=== PATIENT | female | born 1990 | race American Indian/Alaskan Native ===

== ENCOUNTER 2017-06-11 14:09 | Emergency (ER) | payer OTHER ==
[2017-06-11 14:19] VITALS: BMI 35.7
--- NOTE | 2017-06-11 15:09 | ED PDOC ---
Arrival/HPI - General Chief Complaint: Chest Pain Time Seen by Provider: 06/11/17 14:23 Historian: Patient - History of Present Illness Narrative History of Present Illness (Text): 06/11/17 15:05 This 26 yo female presents to this ED c/o cough, sore throat since yesterday. Patient stated she developed upper back pain when she cough since this morning. Patient denies hemoptysis, leg swelling, calf pain, blood disorder, skin rash , wheezing, recent travel, sick contact, tobacco use, dizziness, or abnormal gait. PERC negative for PE Time/Duration: Other (see hpi) Context: Home Past Medical History - Provider Review Nursing Documentation Reviewed: Yes - Infectious Disease Hx of Infectious Diseases: None - Tetanus Immunization Tetanus Immunization: Unknown - Cardiac Hx Cardiac Disorders: No - Pulmonary Hx Asthma: Yes - Neurological Hx Migraine: Yes - HEENT Hx HEENT Disorder: No - Renal Hx Renal Disorder: No - Endocrine/Metabolic Hx Endocrine Disorders: No - Hematological/Oncological Hx Anemia: Yes - Integumentary Hx Dermatological Disorder: No - Musculoskeletal/Rheumatological Hx Musculoskeletal Disorders: No - Gastrointestinal Hx Gastrointestinal Disorders: No - Genitourinary/Gynecological Hx Genitourinary Disorders: No - Psychiatric Hx Anxiety: No Hx Bipolar Disorder: No Hx Depression: No Hx Post Traumatic Stress Disorder: No Hx Schizophrenia: No Hx Substance Use: No - Surgical History Hx Section: Yes Other/Comment: ovarian cyst removal - Anesthesia Hx Anesthesia: No Hx Anesthesia Reactions: No Hx Malignant Hyperthermia: No - Suicidal Assessment Feels Threatened In Home Enviroment: No Family/Social History - Physician Review Nursing Documentation Reviewed: Yes Family/Social History: Other (noncontributory) Smoking Status: Never Smoked Hx Alcohol Use: Yes Frequency of alcohol use: Socially Hx Substance Use: No Hx Substance Use Treatment: No Allergies/Home Meds Allergies/Adverse Reactions: Allergies No Known Allergies Allergy (Verified 06/11/17 14:19) Review of Systems - Review of Systems Constitutional: Normal. absent: Fatigue, Weight Change, Fevers Eyes: Normal ENT: Normal Respiratory: Cough. absent: Sputum, Wheezing Cardiovascular: Chest Pain. absent: Palpitations, Edema, Calf Pain, GOMEZ, Orthopnea, Syncope Gastrointestinal: Normal. absent: Abdominal Pain, Vomiting Genitourinary Female: Normal. absent: Dysuria, Frequency, Hematuria Musculoskeletal: Normal Skin: Normal. absent: Rash Neurological: Normal. absent: Headache, Dizziness, Focal Weakness, Gait Changes , Speech Changes, Facial Droop, Disequilibrium, Seizure Endocrine: Normal Hemo/Lymphatic: Normal Psychiatric: Normal Physical Exam Vital Signs Pulse Resp Pulse Ox 06/11/17 14:16 98 H 18 99 Temperature: Afebrile Blood Pressure: Normal Pulse: Regular Respiratory Rate: Normal Appearance: Positive for: Well-Appearing, Non-Toxic, Comfortable Pain Distress: None Mental Status: Positive for: Alert and Oriented X 3 - Systems Exam Head: Present: Atraumatic, Normocephalic Pupils: Present: PERRL Extroacular Muscles: Present: EOMI Conjunctiva: Present: Normal Ears: Present: Normal Mouth: Present: Moist Mucous Membranes Pharnyx: Present: Normal. No: ERYTHEMA, EXUDATE, TONSILS ENLARGED, Peritonsilar Swelling, Uvular Deviation, Muffled/Hoarse Voice, Strider, Soft Palate/Uvular Edema Nose (External): Present: Atraumatic Nose (Internal): Present: Normal Inspection Neck: Present: Normal Range of Motion, Trachea Midline. No: Meningeal Signs, MIDLINE TENDERNESS, Paraspinal Tenderness Respiratory/Chest: Present: Clear to Auscultation, Good Air Exchange. No: Respiratory Distress, Accessory Muscle Use, Wheezes, Decreased Breath Sounds, Rales, Retracting, Rhonchi, Tachypneic Cardiovascular: Present: Regular Rate and Rhythm, Normal S1, S2. No: Murmurs Abdomen: No: Tenderness Back: Present: Normal Inspection. No: CVA Tenderness Upper Extremity: Present: Normal Inspection, Normal ROM Lower Extremity: Present: Normal Inspection, Normal ROM Neurological: Present: GCS=15, CN II-XII Intact, Speech Normal, Motor Func Grossly Intact, Normal Sensory Function, Normal Cerebellar Funct, Gait Normal Skin: Present: Warm, Dry, Normal Color. No: Rashes Psychiatric: Present: Alert, Oriented x 3, Normal Insight, Normal Concentration Medical Decision Making ED Course and Treatment: 06/11/17 16:32 Patient came c/o URI symptoms, and upper back pain. Physical exam was unremarkable. CXR was negative. PERC was negative for PE. Patient was treated with cough medication. Patient was recommended to f/u pmd in 1-2 days. Patient understood recommendation. Re-evaluation Time: 16:34 Reassessment Condition: Re-examined, Improved - RAD Interpretation Narrative RAD Interpretations (Text): 06/11/17 16:32 Patient Name / ID : ARTURO LYONS / [id number] Exam Date : 06/11/2017 16:14:59 ( Approved ) Study Comment : Sex / Age : F / 26Y Creator : Gian Hicks MD Dictator : Gian Hicks MD Land Commissioner : Web Architect : Gian Hicks MD Approver2 : Report Date : 06/11/2017 16:26:05 My Comment : HISTORY: cough COMPARISON: No prior. TECHNIQUE: Chest PA and lateral FINDINGS: LUNGS: No active pulmonary disease. PLEURA: No significant pleural effusion identified. No pneumothorax apparent. CARDIOVASCULAR: Normal. OSSEOUS STRUCTURES: No significant abnormalities. VISUALIZED UPPER ABDOMEN: Normal. OTHER FINDINGS: None. IMPRESSION: No active disease. Radiology Orders: 06/11/17 15:02 CHEST TWO VIEWS (PA/LAT) [RAD] Stat - Medication Orders Current Medication Orders: Promethazine HCl/Codeine (Phenergan/Codeine Oral Syrup) 5 ml PO STAT STA Stop: 06/11/17 16:32 Disposition/Present on Arrival - Present on Arrival Any Indicators Present on Arrival: No History of DVT/PE: No History of Uncontrolled Diabetes: No Urinary Catheter: No History of Decub. Ulcer: No History Surgical Site Infection Following: None - Disposition Have Diagnosis and Disposition been Completed?: Yes Diagnosis: Upper respiratory infection, Upper back pain Disposition: HOME/ ROUTINE Disposition Time: 16:35 Patient Plan: Discharge Patient Problems: Current Active Problems Problem Status Onset Upper back pain Acute Upper respiratory infection Acute Condition: IMPROVED Discharge Instructions (ExitCare): Upper Respiratory Infection (ED) Additional Instructions: Call private doctor for follow up visit in 1-2 days. Take medication as instructed. Return to emergency if symptoms worsen. Prescriptions: Promethazine/Codeine [Codeine/Promethazine 10 MG/5 Ml-6.25 MG/5 Ml] 5 ml PO Q4H PRN #120 ml PRN Reason: Cough Referrals: Jones Barron MD [Primary Care Provider] - Follow up with primary Forms: [employer] (Sing[place]an), WORK NOTE
--- NOTE | 2017-06-11 16:27 | RAD ---
HISTORY: cough COMPARISON: No prior. TECHNIQUE: Chest PA and lateral FINDINGS: LUNGS: No active pulmonary disease. PLEURA: No significant pleural effusion identified. No pneumothorax apparent. CARDIOVASCULAR: Normal. OSSEOUS STRUCTURES: No significant abnormalities. VISUALIZED UPPER ABDOMEN: Normal. OTHER FINDINGS: None. IMPRESSION: No active disease.
[2017-06-11] MEDS ORDERED: Promethazine/Cod 6.25mg-10mg/5ml Syr UD PO STA (16:31)
[2017-06-11 16:51] VITALS: BP 154/86; PULSE 82; RESP 16; TEMP 98; O2SAT 98
--- NOTE | 2017-06-12 16:59 | CARD ---
APPROVED REPORT EKG Measurement Heart [id number] <Conclusion> Normal sinus rhythm Normal ECG
== END 2017-06-11 16:50 | disposition home or self-care (01) ==
LOC: ED 14:09
DX: J06.9 Acute upper respiratory infection, unspecified (principal); M54.6 Pain in thoracic spine

== ENCOUNTER 2017-11-22 11:06 | Emergency (ER) | payer OTHER ==
[2017-11-22 11:09] VITALS: BMI 36.4
[2017-11-22 11:17] VITALS: TEMP 98; O2SAT 99
[2017-11-22 12:13] LABS: BASO # 0.04 K/mm3 (0.0-2.0); BASO % 0.5 % (0.0-3.0); EOS % 0.2 % (1.5-5.0); GRAN # 7.08 (1.4-6.5); GRAN % 84.3 % (50.0-68.0); HEMOGLOBIN 12.3 g/dL (12.0-16.0); LYMPH % 11.5 % (22.0-35.0); MEAN CELL VOLUME 80.6 fl (80.0-105.0); MEAN CORPUSCULAR HEMOGLOBIN 27.1 pg (25.0-35.0); MEAN CORPUSCULAR HGB CONC 33.6 g/dl (31.0-37.0); MEAN PLATELET VOLUME 9.8 fl (7.0-11.0); MONO # 0.3 (0.1-0.6); MONO % 3.5 % (1.0-6.0); RBC 4.54 10^6/uL (3.5-6.1); RED CELL DISTRIBUTION WIDTH 13.6 % (11.5-14.5); WHITE BLOOD COUNT 8.4 10^3/ul (4.5-11.0)
[2017-11-22 12:14] LABS: URINE BILIRUBIN NEGATIVE (NEGATIVE); URINE BLOOD NEGATIVE (NEGATIVE); URINE GLUCOSE (UA) NEGATIVE (NEGATIVE); URINE LEUKOCYTE ESTERASE NEGATIVE Leu/uL (NEGATIVE); URINE PROTEIN TRACE mg/dL (<30 mg/dL)
[2017-11-22 12:18] LABS: URINE APPEARANCE CLEAR (CLEAR); URINE COLOR YELLOW (YELLOW)
[2017-11-22 12:20] LABS: URINE BACTERIA MANY (NEG); URINE RBC 0 - 2 /hpf (0-2)
[2017-11-22 12:23] LABS: ALB/GLOB RATIO 1.3 (1.1-1.8); ALBUMIN 4.6 g/dL (3.0-4.8); ALT/SGPT 26 U/L (7-56); AST/SGOT 21 U/L (14-36); BLOOD UREA NITROGEN 9 mg/dL (7-21); CALCIUM 9.5 mg/dL (8.4-10.5); GFR AFRICAN-AMERICAN > 60; GFR NON-AFRICAN AMERICAN > 60
--- NOTE | 2017-11-22 12:23 | ED PDOC ---
Arrival/HPI - General Chief Complaint: Shortness Of Breath Time Seen by Provider: 11/22/17 11:07 Historian: Patient - History of Present Illness Narrative History of Present Illness (Text): 11/22/17 11:59 27yo female with no past medical history who present with complaint of SOB. States she suddenly became SOB enroute to her job. States she became nervous and came to emergency department . She states she has been having problems with her sister. she denies history of anxiety. Denies chest pain, cough, fever, LE edema, calf pain, recent travel/surgery, OCP, any other complaint. Past Medical History - Provider Review Nursing Documentation Reviewed: Yes - Infectious Disease Hx of Infectious Diseases: None - Tetanus Immunization Tetanus Immunization: Unknown - Cardiac Hx Cardiac Disorders: No - Pulmonary Hx Asthma: Yes - Neurological Hx Migraine: Yes - HEENT Hx HEENT Disorder: No - Renal Hx Renal Disorder: No - Endocrine/Metabolic Hx Endocrine Disorders: No - Hematological/Oncological Hx Anemia: Yes - Integumentary Hx Dermatological Disorder: No - Musculoskeletal/Rheumatological Hx Musculoskeletal Disorders: No - Gastrointestinal Hx Gastrointestinal Disorders: No - Genitourinary/Gynecological Hx Genitourinary Disorders: No - Psychiatric Hx Anxiety: No Hx Bipolar Disorder: No Hx Depression: No Hx Post Traumatic Stress Disorder: No Hx Schizophrenia: No Hx Substance Use: No - Surgical History Hx Section: Yes Other/Comment: ovarian cyst removal - Anesthesia Hx Anesthesia: No Hx Anesthesia Reactions: No Hx Malignant Hyperthermia: No - Suicidal Assessment Feels Threatened In Home Enviroment: No Family/Social History - Physician Review Nursing Documentation Reviewed: Yes Family/Social History: Unknown Family HX Smoking Status: Never Smoked Hx Alcohol Use: Yes Frequency of alcohol use: Socially Hx Substance Use: No Hx Substance Use Treatment: No Allergies/Home Meds Allergies/Adverse Reactions: Allergies No Known Allergies Allergy (Verified 11/22/17 11:17) Home Medications: Home Meds Medication Instructions Recorded Confirmed No Known Home Med 11/22/17 11/22/17 Review of Systems - Physician Review All systems were reviewed & negative as marked: Yes - Review of Systems Constitutional: Normal Eyes: Normal ENT: Normal Respiratory: SOB. absent: Cough, Sputum, Wheezing Cardiovascular: Normal Gastrointestinal: Normal Genitourinary Female: Normal Musculoskeletal: Normal Skin: Normal Neurological: Normal Endocrine: Normal Hemo/Lymphatic: Normal Psychiatric: Normal Physical Exam Vital Signs Reviewed: Yes Vital Signs Temp Pulse Resp BP Pulse Ox 11/22/17 13:25 78 18 124/76 99 11/22/17 13:06 18 99 11/22/17 11:09 98 F 103 H 20 127/81 99 Temperature: Afebrile Blood Pressure: Normal Pulse: Regular Respiratory Rate: Normal Appearance: Positive for: Well-Appearing, Non-Toxic, Comfortable Pain Distress: None Mental Status: Positive for: Alert and Oriented X 3 - Systems Exam Head: Present: Atraumatic, Normocephalic Pupils: Present: PERRL Extroacular Muscles: Present: EOMI Conjunctiva: Present: Normal Mouth: Present: Moist Mucous Membranes Neck: Present: Normal Range of Motion Respiratory/Chest: Present: Clear to Auscultation, Good Air Exchange. No: Respiratory Distress, Accessory Muscle Use, Wheezes, Decreased Breath Sounds, Rales, Retracting, Rhonchi Cardiovascular: Present: Regular Rate and Rhythm, Normal S1, S2. No: Murmurs Abdomen: No: Tenderness, Distention, Peritoneal Signs Back: Present: Normal Inspection Upper Extremity: Present: Normal Inspection. No: Cyanosis, Edema Lower Extremity: Present: Normal Inspection. No: Edema Neurological: Present: GCS=15, CN II-XII Intact, Speech Normal Skin: Present: Warm, Dry, Normal Color. No: Rashes Psychiatric: Present: Alert, Oriented x 3, Normal Insight, Normal Concentration Medical Decision Making ED Course and Treatment: 11/22/17 19:45 PT in emergency department for stated history. She was neurologically intact and in no distress. Her PE was benign. EKG NSR @ 94bpm Chest X-Ray NAD Lab was unremarkable. Pt's symptoms resolved while she was in emergency department . Pt might have anxiety. She was advised to follow up with her PMD/onion farmer. TRT emergency department for any new or worsening symptoms. - Lab Interpretations Lab Results: 11/22/17 11:34 11/22/17 11:34 Lab Results 11/22/17 11:34: Urine Color Yellow, Urine Appearance Clear, Urine pH 8.0, Ur Specific [place] 1.015, Urine Protein Trace H, Urine Glucose (UA) Negative, Urine Ketones Negative, Urine Blood Negative, Urine Nitrate Negative, Urine Bilirubin Negative, Urine Urobilinogen 1.0 H, Ur Leukocyte Esterase Negative, Urine RBC 0 - 2, Urine WBC 1 - 3, Ur Epithelial Cells 6 - 8, Urine Bacteria Many , Urine Other Uyeast 11/22/17 11:34: Sodium 141, Potassium 4.4, Chloride 101, Carbon Dioxide 26, Anion Gap 18, BUN 9, Creatinine 0.7, Est GFR ( Amer) > 60, Est GFR (Non- Af Amer) > 60, Random Glucose 103, Calcium 9.5, Magnesium 2.0, Total Bilirubin 0.4, AST 21, ALT 26, Alkaline Phosphatase 70, Lactate Dehydrogenase 663, Total Creatine Kinase 241 H, CK-MB (CK-2) 0.4, CK-MB (CK-2) % Cancelled, Troponin I < 0.01, Total Protein 8.2, Albumin 4.6, Globulin 3.6, Albumin/Globulin Ratio 1.3 11/22/17 11:34: PT 12.4, INR 1.08, APTT 29.1, D-Dimer, Quantitative < 200 11/22/17 11:34: WBC 8.4, RBC 4.54, Hgb 12.3, Hct 36.6, MCV 80.6, MCH 27.1, MCHC 33.6, RDW 13.6, Plt Count 359, MPV 9.8, Gran % 84.3 H, Lymph % (Auto) 11.5 L, Grainger % (Auto) 3.5, Eos % (Auto) 0.2 L, Baso % (Auto) 0.5, Gran # 7.08 H, Lymph # (Auto) 1.0 L, Grainger # (Auto) 0.3, Eos # (Auto) 0.0, Baso # (Auto) 0.04 - RAD Interpretation Radiology Orders: 11/22/17 11:16 CHEST TWO VIEWS (PA/LAT) [RAD] Stat Disposition/Present on Arrival - Present on Arrival Any Indicators Present on Arrival: No History of DVT/PE: No History of Uncontrolled Diabetes: No Urinary Catheter: No History of Decub. Ulcer: No History Surgical Site Infection Following: None - Disposition Have Diagnosis and Disposition been Completed?: Yes Diagnosis: SOB (shortness of breath), Anxiety Disposition: HOME/ ROUTINE Disposition Time: 12:50 Patient Plan: Discharge Condition: STABLE Discharge Instructions (ExitCare): Anxiety, Adult (DC), Shortness of Breath ( Dyspnea) (DC) Additional Instructions: Follow up with your doctor Return to emergency department for any new or worsening symptoms Referrals: [facility] [place] - Follow up with primary Forms: [employer] ([place])
[2017-11-22 12:30] LABS: D DIMER < 200 ng/mL (0-243); INR 1.08 (0.93-1.08); PARTIAL THROMBOPLASTIN TIME 29.1 Seconds (25.1-36.5); PROTHROMBIN TIME 12.4 SECONDS (9.4-12.5)
[2017-11-22 12:35] LABS: TROPONIN I < 0.01 ng/mL
[2017-11-22 12:43] LABS: CK-MB 0.4 ng/mL (0.0-3.6)
--- NOTE | 2017-11-22 12:57 | CARD ---
APPROVED REPORT EKG Measurement Heart [id number] <Conclusion> Normal sinus rhythm Normal ECG
[2017-11-22 13:25] VITALS: BP 124/76; PULSE 78; RESP 18
== END 2017-11-22 13:32 | disposition home or self-care (01) ==
LOC: ED 11:06
DX: F41.9 Anxiety disorder, unspecified (principal); R06.02 Shortness of breath

== ENCOUNTER 2018-09-03 21:44 | Emergency (ER) | payer BC ==
[2018-09-03 21:44] VITALS: BMI 36.4
[2018-09-03 22:18] VITALS: TEMP 97.9
--- NOTE | 2018-09-03 22:21 | ED PDOC ---
Arrival/HPI - General Chief Complaint: Chest Pain Time Seen by Provider: 09/03/18 21:50 Historian: Patient - History of Present Illness Narrative History of Present Illness (Text): 09/03/18 22:15 28 year old female, whose past medical history includes asthma, presents to the emergency department with chest discomfort. Patient states she was feeling chest tightness with associated dizziness. Patient also informs that she felt "a funny feeling" in her left arm. Patient also informs pain was radiating with a sharp pain to her back. Patient also informs she has been getting over a cold which she developed a few days ago, including a mild cough. Patient informs of nausea without vomiting. Patient denies any fevers, chills, headache, diaphoresis, abdominal pain, diarrhea, neck pain, or any other complaint. Time/Duration: Prior to Arrival Symptom Onset: Gradual Symptom Course: Improving Quality: Pressure Activities at Onset: Light Context: Walking Past Medical History - Provider Review Nursing Documentation Reviewed: Yes - Infectious Disease Hx of Infectious Diseases: None - Tetanus Immunization Tetanus Immunization: Unknown - Cardiac Hx Cardiac Disorders: No - Pulmonary Hx Asthma: Yes - Neurological Hx Migraine: Yes - HEENT Hx HEENT Disorder: No - Renal Hx Renal Disorder: No - Endocrine/Metabolic Hx Endocrine Disorders: No - Hematological/Oncological Hx Anemia: Yes - Integumentary Hx Dermatological Disorder: No - Musculoskeletal/Rheumatological Hx Musculoskeletal Disorders: No - Gastrointestinal Hx Gastrointestinal Disorders: No - Genitourinary/Gynecological Hx Genitourinary Disorders: No - Psychiatric Hx Anxiety: No Hx Bipolar Disorder: No Hx Depression: No Hx Post Traumatic Stress Disorder: No Hx Schizophrenia: No Hx Substance Use: No - Surgical History Hx Section: Yes Other/Comment: ovarian cyst removal - Anesthesia Hx Anesthesia: No Hx Anesthesia Reactions: No Hx Malignant Hyperthermia: No - Suicidal Assessment Feels Threatened In Home Enviroment: No Family/Social History - Physician Review Nursing Documentation Reviewed: Yes Family/Social History: No Known Family HX Smoking Status: Never Smoked Hx Alcohol Use: Yes Hx Substance Use: No Hx Substance Use Treatment: No Allergies/Home Meds Allergies/Adverse Reactions: Allergies No Known Allergies Allergy (Verified 11/22/17 11:17) Home Medications: Home Meds Medication Instructions Recorded Confirmed No Known Home Med 11/22/17 11/22/17 Review of Systems - Physician Review All systems were reviewed & negative as marked: Yes - Review of Systems Constitutional: absent: Fevers, Night Sweats Cardiovascular: Chest Pain Gastrointestinal: Nausea. absent: Abdominal Pain, Diarrhea, Vomiting Musculoskeletal: Back Pain. absent: Neck Pain Neurological: Dizziness. absent: Headache Endocrine: absent: Diaphoresis Physical Exam - Physical Exam Narrative Physical Exam (Text): 09/03/18 22:21 Gen: VS reviewed, alert, well developed, well nourished, nontoxic, mild distress. ENT: normal pharynx. Eye: EOMI, PERRL. Neck: no JVD, supple, no adenopathy. CV: regular rate, regular rhythm, no rubs, no murmur, no gallops, S1, S2, pulses equal and strong. Pulm: no distress, clear to auscultation, no wheeze, no rhonchi, breath sounds equal, no rales. Abd: soft, nontender, no guarding, no rebound, no rigidity, normal bowel sounds. Ext: no edema. Skin: good color, no rash, no cyanosis. Psych: responds appropriately to questions, normal affect. Neuro: oriented x 3, CN2-12 intact grossly, motor intact, sensation intact. Vital Signs Reviewed: Yes Vital Signs Temp Pulse Pulse Resp BP BP Pulse Ox 09/03/18 21:57 90 111/70 09/03/18 21:46 97.9 F 82 18 111/70 97 Temperature: Afebrile Blood Pressure: Normal Pulse: Regular Respiratory Rate: Normal Appearance: Positive for: Well-Appearing, Non-Toxic, Comfortable Pain Distress: None Mental Status: Positive for: Alert and Oriented X 3 Medical Decision Making ED Course and Treatment: 09/03/18 22:23 Impression: 28 year old female presents with chest pain. Plan: -- EKG -- CMP, Trop -- CBC, Ddimer, Platelets -- Chest X-ray -- Reassess and disposition Prior Visits: Notes and results from previous visits were reviewed. 09/04/18 02:28 28 f presents with nonspecific chest pain, no significant clinical suspicion for aortic dissection or PE. with serial trop and nondiagnostic ekg a acute event such as acs is very unlikely and patient is stable for dc. refer to cardiology. patient understands and agrees with plan and will make follow up. - RAD Interpretation Narrative RAD Interpretations (Text): 09/04/18 00:12 Chest X-ray reviewed by me, shows: No focal infiltrates, no pneumothorax, no wide mediastinum Radiology Orders: 09/03/18 22:14 CHEST PORTABLE [RAD] Stat Parking Enforcement Specialist: ED Physician - EKG Interpretation EKG Interpretation (Text): 09/03/18 23:36 Normal sinus rhythm @ 91bpm Normal EKG Interpreted by ED Physician: Yes Type: 12 lead EKG - Scribe Statement The provider has reviewed the documentation as recorded by the Scribe Jasper Manzano Provider Scribe Attestation: All medical record entries made by the Scribe were at my direction and personally dictated by me. I have reviewed the chart and agree that the record accurately reflects my personal performance of the history, physical exam, medical decision making, and the department course for this patient. I have also personally directed, reviewed, and agree with the discharge instructions and disposition. Disposition/Present on Arrival - Present on Arrival Any Indicators Present on Arrival: No History of DVT/PE: No History of Uncontrolled Diabetes: No Urinary Catheter: No History of Decub. Ulcer: No History Surgical Site Infection Following: None - Disposition Have Diagnosis and Disposition been Completed?: Yes Diagnosis: Chest pain Disposition: HOME/ ROUTINE Disposition Time: 02:29 Patient Plan: Discharge Condition: STABLE Discharge Instructions (ExitCare): Chest Pain (ED) Additional Instructions: return for any new or worsening symptoms. follow up with a family and consumer sciences professor. Referrals: PCP,NO [Primary Care Provider] - Follow up with primary Marcell Nicole MD [Staff Provider] - Follow up with primary Christie Moralez MD [Medical Doctor] - Follow up with primary Forms: [email or web address] ([place]ian), WORK NOTE
[2018-09-03 22:48] VITALS: RESP 16
[2018-09-03 22:51] LABS: BASO # 0.06 K/mm3 (0.0-2.0); BASO % 0.7 % (0.0-3.0); EOS # 0.2 (0.0-0.7); EOS % 2.7 % (1.5-5.0); HEMOGLOBIN 12.2 g/dL (12.0-16.0); LYMPH # 2.1 (1.2-3.4); LYMPH % 24.7 % (22.0-35.0); MEAN CELL VOLUME 82.9 fl (80.0-105.0); MEAN CORPUSCULAR HEMOGLOBIN 26.7 pg (25.0-35.0); MEAN CORPUSCULAR HGB CONC 32.2 g/dl (31.0-37.0); MEAN PLATELET VOLUME 9.9 fl (7.0-11.0); MONO # 0.5 (0.1-0.6); MONO % 5.3 % (1.0-6.0); RBC 4.57 10^6/uL (3.5-6.1); RED CELL DISTRIBUTION WIDTH 13.8 % (11.5-14.5); WHITE BLOOD COUNT 8.6 10^3/uL (4.5-11.0)
[2018-09-03 23:01] LABS: INR 1.16; PARTIAL THROMBOPLASTIN TIME 38.1 Seconds (26.9-38.3); PROTHROMBIN TIME 12.9 SECONDS (9.4-12.5)
[2018-09-03 23:05] LABS: ALB/GLOB RATIO 1.3 (1.1-1.8); ALBUMIN 4.1 g/dL (3.0-4.8); AST/SGOT 25 U/L (14-36); BLOOD UREA NITROGEN 6 mg/dL (7-21); CALCIUM 9.3 mg/dL (8.4-10.5); GFR NON-AFRICAN AMERICAN > 60
[2018-09-03 23:10] LABS: ALT/SGPT < 6 U/L (7-56)
[2018-09-03 23:16] LABS: TROPONIN I < 0.01 ng/mL
[2018-09-03 23:25] LABS: D DIMER < 200 ng/mlDDU (0-243)
[2018-09-04 00:02] VITALS: PULSE 78
[2018-09-04 02:15] VITALS: BP 116/64; O2SAT 96
--- NOTE | 2018-09-04 08:32 | RAD ---
Date of service: 09/03/2018 HISTORY: chest pain COMPARISON: 11/22/2017 TECHNIQUE: 1 view obtained. FINDINGS: LUNGS: No active pulmonary disease. PLEURA: No significant pleural effusion identified, no pneumothorax apparent. CARDIOVASCULAR: No aortic atherosclerotic calcification present. Normal cardiac size. No pulmonary vascular congestion. OSSEOUS STRUCTURES: No significant abnormalities. VISUALIZED UPPER ABDOMEN: Normal. OTHER FINDINGS: None. IMPRESSION: No active disease.
--- NOTE | 2018-09-04 10:40 | CARD ---
APPROVED REPORT Date of service: 09/03/2018 EKG Measurement Heart [id number] <Conclusion> Normal sinus rhythm Nonspecific T wave abnormality Abnormal ECG
== END 2018-09-04 03:08 | disposition home or self-care (01) ==
LOC: ED 21:44
DX: R07.89 Other chest pain (principal)

== ENCOUNTER 2018-09-06 09:52 | Outpatient (CLI) | payer BC | END 2018-09-06 09:53 | disposition home or self-care (01) | LOC: LAB 09:52 ==

== ENCOUNTER 2018-09-29 14:12 | Observation (INO) | payer BC ==
--- NOTE | 2018-09-29 14:43 | ED PDOC ---
Arrival/HPI - General Chief Complaint: Chest Pain Historian: Patient - History of Present Illness Narrative History of Present Illness (Text): 09/29/18 14:40 A 28 year old female, whose past medical history includes asthma, presents to the emergency room complaining of mid-sternal chest pain since 1:30 pm earlier today. Patient states she was just dropping off her daughter when she suddenly felt her symptoms and notes pain has been constant since then. Patient notes her pain radiates to her back and exacerbates when she breathes deeply. Patient reports taking her asthma pump twice for the pain to no relief. Patient states her current is unlike any pain she has experienced before. Patient notes her current medication only includes asthma medication and vitamin D. Patient states she had symptoms with her lower right leg that resolved yesterday. Patient notes she has a family history of cardiac issues. Patient also notes she is not a smoker, has not recently traveled, and is not currently taking any control medication. Patient denies any nausea, vomiting, cough, sore throat, abdominal pain, numbness, tingling, or any other complaints. No PMD Time/Duration: 1-3 hours Symptom Onset: Sudden Symptom Course: Unchanged Activities at Onset: Light Context: Work Past Medical History - Provider Review Nursing Documentation Reviewed: Yes - Infectious Disease Hx of Infectious Diseases: None - Tetanus Immunization Tetanus Immunization: Unknown - Reproductive Menopause: No - Cardiac Hx Cardiac Disorders: No - Pulmonary Hx Asthma: Yes - Neurological Hx Migraine: Yes - HEENT Hx HEENT Disorder: No - Renal Hx Renal Disorder: No - Endocrine/Metabolic Hx Endocrine Disorders: No - Hematological/Oncological Hx Anemia: Yes - Integumentary Hx Dermatological Disorder: No - Musculoskeletal/Rheumatological Hx Musculoskeletal Disorders: No - Gastrointestinal Hx Gastrointestinal Disorders: No - Genitourinary/Gynecological Hx Genitourinary Disorders: No - Psychiatric Hx Anxiety: No Hx Bipolar Disorder: No Hx Depression: No Hx Post Traumatic Stress Disorder: No Hx Schizophrenia: No Hx Substance Use: No - Surgical History Hx Section: Yes Other/Comment: ovarian cyst removal - Anesthesia Hx Anesthesia: No Hx Anesthesia Reactions: No Hx Malignant Hyperthermia: No - Suicidal Assessment Feels Threatened In Home Enviroment: No Family/Social History - Physician Review Nursing Documentation Reviewed: Yes Family/Social History: Unknown Family HX Smoking Status: Never Smoked Hx Alcohol Use: Yes Hx Substance Use: No Hx Substance Use Treatment: No Allergies/Home Meds Allergies/Adverse Reactions: Allergies No Known Allergies Allergy (Verified 11/22/17 11:17) Home Medications: Home Meds Medication Instructions Recorded Confirmed Albuterol Sulfate [Proair 09/29/18 Respiclick] Review of Systems - Review of Systems Constitutional: absent: Fatigue, Fevers Eyes: absent: Vision Changes ENT: absent: Sore Throat Respiratory: Other (pain upon breathing deeply). absent: Cough Cardiovascular: Chest Pain (mid chest pain radiating to back) Gastrointestinal: absent: Abdominal Pain, Nausea, Vomiting Genitourinary Female: absent: Dysuria Musculoskeletal: absent: Back Pain, Neck Pain Skin: absent: Rash Neurological: absent: Headache, Dizziness, Other (no numbness/tingling) Hemo/Lymphatic: absent: Easy Bleeding Physical Exam - Physical Exam Narrative Physical Exam (Text): 09/29/18 14:42 Head: Atraumatic. Normocephalic. Eyes: PERRL. EOMI. Conjunctivae are not pale. ENT: Mucous membranes are moist and intact. Oropharynx is clear and symmetric. Neck: Supple. Full ROM. No JVD. No lymphadenopathy. No thyromegaly. Cardiovascular: Tachycardic. No pathologic murmurs. Distal pulses are 2+ and symmetric. Pulmonary/Chest: No evidence of respiratory distress. Clear to auscultation bilaterally. No wheezing, rales or rhonchi. Chest wall is nontender. Abdominal: Soft and non-distended. There is no tenderness. No rebound, guarding, or rigidity. No organomegaly. Good bowel sounds. Back: No CVA tenderness. No palpable back tenderness. Extremities: No edema. No cyanosis. No clubbing. Full range of motion in all extremities. No calf tenderness. No muscle pain or edema noted. Skin: Skin is warm and dry. No petechiae. No purpura. Neurological: Alert, awake, and oriented. Motor and sensory exam intact. No meningeal signs. Psychiatric: Good eye contact. Mildly anxious. Vital Signs Reviewed: Yes Vital Signs Temp Pulse Resp BP Pulse Ox 09/29/18 14:18 97.7 F 102 H 18 112/70 97 09/29/18 14:12 97.7 F 108 H 18 112/70 100 Temperature: Afebrile Blood Pressure: Normal Pulse: Tachycardic Respiratory Rate: Normal Appearance: Positive for: Well-Appearing, Non-Toxic Pain Distress: Moderate Mental Status: Positive for: Alert and Oriented X 3 Medical Decision Making ED Course and Treatment: 09/29/18 14:43 Impression: 28 year old female presenting to the emergency room complaining of chest pain. Plan: -- EKG -- Cardiac ISO -- CMP -- CBC -- D Dimer -- COAGs -- Chest X-ray -- Urinalysis -- Reassess and disposition Prior Visits: Notes and results from previous visits were reviewed. Patient was last seen in the emergency department on 09/03/18 and evaluated for chest pain. Patient was then discharged when her symptoms resolved. Progress Notes: Patient on evaluation is tachycardic, but not hypoxic. No calf pain. Denies smoking, denies recent prolonged travel, denies hx of clots, denies oral contraceptives, denies prolonged immobilization. On exam, her pain is not palpable. No abdominal pain. Denies positional or exertional pain. With serial exams, heart rate improved to 90. Blood pressure stable. Ddimer is unremarkable. CPK is elevated. She denies statin medication. Denies sedentary lifestyle. Denies strenuous activity or exertion. IV fluids given. No focal muscle weakness noted. ASA ordered. She reports family hx of cardiac disease. Initial troponin unremarkable. Given history of chest pain, will admit to telemetry bed for cardiology consultation, serial exams, monitoring. Patient currently does not have PMD, case discussed with Dr. Gamaliel Morales, oncall physician accepts admission to his service. Will consult Dr. Giraldo cardiology. Labs and treatment plan reviewed with patient, who is agreeable to admission. 09/29/18 19:38 - RAD Interpretation Narrative RAD Interpretations (Text): 09/29/18 15:53 Procedure: Chest X-ray Dictator: Jasper Shields Impression: No active disease. Radiology Orders: 09/29/18 14:39 CHEST TWO VIEWS (PA/LAT) [RAD] Stat Tool Crib Lead: Radiologist - EKG Interpretation EKG Interpretation (Text): 09/29/18 19:43 EKG at 1426, sinus tachycardia rate of [address] elevations Interpreted by ED Physician: Yes Type: 12 lead EKG - Scribe Statement The provider has reviewed the documentation as recorded by the Ashleighibjessica Allen All medical record entries made by the Scribe were at my direction and personally dictated by me. I have reviewed the chart and agree that the record accurately reflects my personal performance of the history, physical exam, medical decision making, and the department course for this patient. I have also personally directed, reviewed, and agree with the discharge instructions and disposition. Disposition/Present on Arrival - Present on Arrival Any Indicators Present on Arrival: No History of DVT/PE: No History of Uncontrolled Diabetes: No Urinary Catheter: No History of Decub. Ulcer: No History Surgical Site Infection Following: None - Disposition Have Diagnosis and Disposition been Completed?: Yes Diagnosis: Chest pain, Elevated CPK Disposition: HOSPITALIZED Disposition Time: 18:30 Patient Plan: Admission, Observation, Telemetry Patient Problems: Current Active Problems Problem Status Onset Chest pain Acute Elevated CPK Acute Condition: FAIR
[2018-09-29 15:32] LABS: BASO # 0.06 K/mm3 (0.0-2.0); BASO % 0.8 % (0.0-3.0); EOS # 0.2 (0.0-0.7); EOS % 2.9 % (1.5-5.0); HEMOGLOBIN 12.9 g/dL (12.0-16.0); LYMPH # 2.3 (1.2-3.4); LYMPH % 30.1 % (22.0-35.0); MEAN CELL VOLUME 83.1 fl (80.0-105.0); MEAN CORPUSCULAR HEMOGLOBIN 26.9 pg (25.0-35.0); MEAN CORPUSCULAR HGB CONC 32.4 g/dl (31.0-37.0); MEAN PLATELET VOLUME 10.5 fl (7.0-11.0); MONO # 0.6 (0.1-0.6); MONO % 7.7 % (1.0-6.0); RBC 4.79 10^6/uL (3.5-6.1); RED CELL DISTRIBUTION WIDTH 13.8 % (11.5-14.5); URINE BILIRUBIN NEGATIVE (NEGATIVE); URINE BLOOD NEGATIVE (NEGATIVE); URINE GLUCOSE (UA) NEGATIVE (NEGATIVE); URINE LEUKOCYTE ESTERASE NEGATIVE Leu/uL (NEGATIVE); URINE PROTEIN 30 mg/dL (<30 mg/dL); WHITE BLOOD COUNT 7.5 10^3/uL (4.5-11.0)
[2018-09-29 15:33] LABS: URINE APPEARANCE CLEAR (CLEAR); URINE COLOR YELLOW (YELLOW)
[2018-09-29 15:36] LABS: URINE AMORPHOUS SEDIMENT TRACE /hpf; URINE RBC 0 - 2 /hpf (0-2)
--- NOTE | 2018-09-29 15:38 | RAD ---
Date of service: 09/29/2018 HISTORY: chest pain COMPARISON: 09/03/2018 TECHNIQUE: Chest PA and lateral views FINDINGS: LUNGS: No active pulmonary disease. PLEURA: No significant pleural effusion identified. No pneumothorax apparent. CARDIOVASCULAR: No aortic atherosclerotic calcification present. Normal cardiac size. No pulmonary vascular congestion. OSSEOUS STRUCTURES: No significant abnormalities. VISUALIZED UPPER ABDOMEN: Normal. OTHER FINDINGS: None. IMPRESSION: No active disease.
[2018-09-29 15:40] LABS: INR 1.19; PARTIAL THROMBOPLASTIN TIME 38.1 Seconds (26.9-38.3); PROTHROMBIN TIME 13.2 SECONDS (9.4-12.5)
[2018-09-29 15:42] LABS: D DIMER < 200 ng/mlDDU (0-243)
[2018-09-29 16:03] LABS: ALB/GLOB RATIO 1.3 (1.1-1.8); ALBUMIN 4.5 g/dL (3.0-4.8); ALT/SGPT 12 U/L (7-56); AST/SGOT 37 U/L (14-36); BLOOD UREA NITROGEN 9 mg/dL (7-21); CALCIUM 9.3 mg/dL (8.4-10.5); GFR NON-AFRICAN AMERICAN > 60
[2018-09-29 16:06] LABS: TROPONIN I < 0.01 ng/mL
[2018-09-29] MEDS ORDERED: Sodium Chloride 0.9% 500 ML IV STA (16:12)
[2018-09-29 16:17] LABS: CK-MB 0.4 ng/mL (0.0-3.6)
--- NOTE | 2018-09-29 20:06 | CARD ---
APPROVED REPORT Date of service: 09/29/2018 EKG Measurement Heart [id number] <Conclusion> Sinus tachycardia Otherwise normal ECG
[2018-09-29 20:33] VITALS: BMI 35.7
[2018-09-29] MEDS ORDERED: Pneumococcal 23-Valent Vaccine IM ONE (20:34)
[2018-09-29] MEDS ORDERED: Sodium Chloride 0.45% 1,000 ML IV SCH (20:45)
[2018-09-30] MEDS ORDERED: Albuterol 0.5% Inhal Sol (2.5 mg/0.5 ml) UD IH PRN (02:00)
--- NOTE | 2018-09-30 04:20 | HP ---
DATE OF EXAM: 09/29/2018 HISTORY OF PRESENT ILLNESS: She is a 28-year-old female who presents to emergency room with midsternal chest pain. She was felt the pain, constant, radiating to her back; also if she takes a deep breath, she feels it. She has an asthma pump, she tried to use it with no relief. She had this before. She came to the emergency room, was sent home, and she is here again with same kind of a feeling. PAST MEDICAL HISTORY: She has asthma, migraine history, anemia. No anxiety. PAST SURGICAL HISTORY: She had ovarian cyst removed. SOCIAL HISTORY: No smoker. Occasional alcohol. No drugs. ALLERGIES: NO KNOWN DRUG ALLERGIES. MEDICATIONS: She takes ProAir when she needs it. REVIEW OF SYSTEMS: No acute fever or fatigue. No acute vision or hearing changes. No sore throat. No neck pain. A little bit of pain when she takes a deep breath. No cough. There is mid chest pain, radiates to back. No abdominal pain. No nausea, vomiting, constipation, diarrhea. No problems urinating. No neck pain. No rashes that she knows of. No headache. No dizziness. No numbness or tingling. No easy bleeding. PHYSICAL EXAMINATION: VITAL SIGNS: She has a 97.7 temperature, 102 pulse, 18 respiratory rate, 112/70 blood pressure, 97% O2 sat. HEENT: Head is atraumatic, normocephalic. Extraocular muscles are intact. Pupils equal, react to light. Throat is moist. NECK: Supple. No lymphadenopathy. No thyromegaly. No JVD. HEART: She is little bit tachycardic, but regular. LUNGS: Decreased breath sounds, but clear to auscultation. No wheezes, no rhonchi, no rales. No reproducible chest wall tenderness. ABDOMEN: Soft, nontender, positive bowel sounds. She is obese. No guarding, no rebound, no CVA tenderness. EXTREMITIES: Have no edema. SKIN: From what I could tell, no rashes or ulcers. NEUROLOGIC: Alert, awake and oriented x3. Cranial nerves II-XII grossly intact, comfortable at this time. DIAGNOSTIC DATA: She had multiple tests done. Chest x-ray with no active disease. EKG with sinus tachycardia. No acute ST elevations. She had blood tests; 7.5 white count, hemoglobin 12.9, hematocrit 39.8, platelets are 407. INR is 1.19, D-dimer is less than 200. 141 sodium, potassium 3.8, BUN 9, creatinine 0.9, GFR greater than 60, sugar 91,calcium 9.3, total bili is 0.4. AST is 37, ALT is 12, alk phos is 70, lactate dehydrogenase is 652. Total creatine kinase is quite high at 727. Troponin I is less than 0.1. Total protein albumin is 4.5. Urine is negative. She is going to have a consult with Cardiology, consult with Pulmonology. Troponins, IV fluids, oxygen. We will watch overnight in observation and see how she does. She is here for chest pain, possible rhabdomyolysis, also mild asthma. Gamaliel Morales DO MTDD
[2018-09-30 06:54] VITALS: BP 105/67; RESP 19; TEMP 97.8; O2SAT 98
[2018-09-30 07:48] LABS: HEMOGLOBIN 11.7 g/dL (12.0-16.0); MEAN CELL VOLUME 82.6 fl (80.0-105.0); MEAN CORPUSCULAR HEMOGLOBIN 26.1 pg (25.0-35.0); MEAN CORPUSCULAR HGB CONC 31.5 g/dl (31.0-37.0); MEAN PLATELET VOLUME 10.3 fl (7.0-11.0); RBC 4.49 10^6/uL (3.5-6.1); RED CELL DISTRIBUTION WIDTH 13.8 % (11.5-14.5); WHITE BLOOD COUNT 6.7 10^3/uL (4.5-11.0)
[2018-09-30 08:09] LABS: ALB/GLOB RATIO 1.3 (1.1-1.8); ALBUMIN 3.9 g/dL (3.0-4.8); ALT/SGPT 14 U/L (7-56); AST/SGOT 26 U/L (14-36); BLOOD UREA NITROGEN 9 mg/dL (7-21); CALCIUM 8.8 mg/dL (8.4-10.5); GFR NON-AFRICAN AMERICAN > 60
[2018-09-30 08:18] LABS: TROPONIN I < 0.01 ng/mL
[2018-09-30 11:49] LABS: CK-MB < 0.2 ng/mL (0.0-3.6)
--- NOTE | 2018-09-30 12:55 | CP.PCM.CON ---
History of Present Illness - History of Present Illness History of Present Illness: CONSULT for Dr. Enzo Roldan covering for Dr. Giraldo Awake, alert, denies chest pain Reason for consultation: Cardiac evaluation of chest pain, history of asthma Brief history of present illness: A 28 year old obese female who came in to the ER due to mid sternal chest pain described as more like pressure especially when taking nice deep breaths that radiates to back. She has history of asthma but not on any medications. She had similar symptoms last 09/06/18 and came to the ER. EKG and troponin were normal thus sent home to follow up with PMD and Front End Developer Designer. Consult was called to evaluate chest pain. Seen and examined by me and Dr. Roldan Review of Systems - Review of Systems All systems: reviewed and no additional remarkable complaints except Review of Systems: as per HPI Past Patient History - Infectious Disease Hx of Infectious Diseases: None - Tetanus Immunizations Tetanus Immunization: Unknown - Past Social History Smoking Status: Never Smoked - CARDIAC Hx Cardiac Disorders: No - PULMONARY Hx Respiratory Disorders: Yes Hx Asthma: Yes - NEUROLOGICAL Hx Neurological Disorder: Yes Hx Migraine: Yes - HEENT Hx HEENT Problems: No - RENAL Hx Chronic Kidney Disease: No - ENDOCRINE/METABOLIC Hx Endocrine Disorders: No - HEMATOLOGICAL/ONCOLOGICAL Hx Blood Disorders: Yes Hx Anemia: Yes - INTEGUMENTARY Hx Dermatological Problems: No - MUSCULOSKELETAL/RHEUMATOLOGICAL Hx Falls: No - GASTROINTESTINAL Hx Gastrointestinal Disorders: Yes (obese) - GENITOURINARY/GYNECOLOGICAL Hx Genitourinary Disorders: No - PSYCHIATRIC Hx Substance Use: No - SURGICAL HISTORY Other/Comment: ovarian cyst removal, c section - ANESTHESIA Hx Anesthesia: No Hx Anesthesia Reactions: No Hx Malignant Hyperthermia: No Meds Allergies/Adverse Reactions: Allergies Allergy/AdvReac Type Severity Reaction Status Date / Time No Known Allergies Allergy Verified 11/22/17 11:17 - Medications Medications: Current Medications Albuterol Sulfate (Albuterol 0.5% Inhal Ana M (2.5 Mg/0.5 Ml) Ud) 2.5 mg IH [id number] PRN PRN Reason: Shortness of Breath Aspirin (Aspirin Chewable) 81 mg PO DAILY [facility] Last Admin: 09/30/18 11:32 Dose: 81 mg Sodium Chloride (Sodium Chloride 0.45%) 1,000 mls @ 60 mls/hr IV .[id number] [facility] Last Admin: 09/29/18 23:02 Dose: 60 mls/hr Physical Exam - Constitutional Appears: Non-toxic, No Acute Distress - Head Exam Head Exam: NORMAL INSPECTION, NORMOCEPHALIC - Eye Exam Eye Exam: Normal appearance Pupil Exam: NORMAL ACCOMODATION - ENT Exam ENT Exam: Mucous Membranes Moist, Normal Exam - Respiratory Exam Respiratory Exam: Decreased Breath Sounds, Clear to Auscultation Bilateral, NORMAL BREATHING PATTERN - Cardiovascular Exam Cardiovascular Exam: REGULAR RHYTHM, +S1, +S2 - GI/Abdominal Exam GI & Abdominal Exam: Normal Bowel Sounds, Soft - Extremities Exam Extremities exam: Positive for: full ROM, normal capillary refill - Neurological Exam Neurological exam: Alert, Oriented x3 - Psychiatric Exam Psychiatric exam: Normal Affect, Normal Mood - Skin Skin Exam: Dry, Normal Color, Warm Results - Vital Signs Recent Vital Signs: Last Vital Signs Temp 97.8 F 09/30/18 06:00 Pulse 88 09/30/18 06:00 Resp 19 09/30/18 06:00 BP 105/67 09/30/18 06:00 Pulse Ox 98 09/30/18 06:00 - Labs Result Diagrams: 09/30/18 07:00 09/30/18 07:00 Labs: Laboratory Results - last 24 hr 09/29/18 09/29/18 09/29/18 14:44 14:44 14:44 WBC 7.5 RBC 4.79 Hgb 12.9 Hct 39.8 MCV 83.1 MCH 26.9 MCHC 32.4 RDW 13.8 Plt Count 407 MPV 10.5 Neut % (Auto) 58.5 Lymph % (Auto) 30.1 Owsley % (Auto) 7.7 H Eos % (Auto) 2.9 Baso % (Auto) 0.8 Lymph # (Auto) 2.3 Owsley # (Auto) 0.6 Eos # (Auto) 0.2 Baso # (Auto) 0.06 Absolute Neuts (auto) 4.39 PT 13.2 H INR 1.19 APTT 38.1 D-Dimer, Quantitative < 200 Sodium Potassium Chloride Carbon Dioxide Anion Gap BUN Creatinine Est GFR ( Amer) Est GFR (Non-Af Amer) Random Glucose Calcium Total Bilirubin AST ALT Alkaline Phosphatase Lactate Dehydrogenase Total Creatine Kinase CK-MB (CK-2) CK-MB (CK-2) % Troponin I Total Protein Albumin Globulin Albumin/Globulin Ratio Urine Color Yellow Urine Appearance Clear Urine pH 8.0 Ur Specific Crandon 1.015 Urine Protein 30 H Urine Glucose (UA) Negative Urine Ketones Negative Urine Blood Negative Urine Nitrate Negative Urine Bilirubin Negative Urine Urobilinogen 1.0 H Ur Leukocyte Esterase Negative Urine RBC 0 - 2 Urine WBC None Ur Epithelial Cells 1 - 3 Amorphous Sediment Trace 09/29/18 09/29/18 09/30/18 14:44 21:00 07:00 WBC RBC Hgb Hct MCV MCH MCHC RDW Plt Count MPV Neut % (Auto) Lymph % (Auto) Owsley % (Auto) Eos % (Auto) Baso % (Auto) Lymph # (Auto) Owsley # (Auto) Eos # (Auto) Baso # (Auto) Absolute Neuts (auto) PT INR APTT D-Dimer, Quantitative Sodium 141 138 Potassium 3.8 3.6 Chloride 102 104 Carbon Dioxide 30 26 Anion Gap 13 11 BUN 9 9 Creatinine 0.9 0.7 Est GFR ( Amer) > 60 > 60 Est GFR (Non-Af Amer) > 60 > 60 Random Glucose 91 85 Calcium 9.3 8.8 Total Bilirubin 0.4 0.5 AST 37 H D 26 ALT 12 14 Alkaline Phosphatase 70 59 Lactate Dehydrogenase 652 Total Creatine Kinase 727 H CK-MB (CK-2) 0.4 CK-MB (CK-2) % Cancelled Troponin I < 0.01 < 0.01 < 0.01 Total Protein 8.0 7.0 Albumin 4.5 3.9 Globulin 3.6 3.1 Albumin/Globulin Ratio 1.3 1.3 Urine Color Urine Appearance Urine pH Ur Specific Crandon Urine Protein Urine Glucose (UA) Urine Ketones Urine Blood Urine Nitrate Urine Bilirubin Urine Urobilinogen Ur Leukocyte Esterase Urine RBC Urine WBC Ur Epithelial Cells Amorphous Sediment 09/30/18 09/30/18 07:00 07:00 WBC 6.7 RBC 4.49 Hgb 11.7 L Hct 37.1 MCV 82.6 MCH 26.1 MCHC 31.5 RDW 13.8 Plt Count 363 MPV 10.3 Neut % (Auto) Lymph % (Auto) Owsley % (Auto) Eos % (Auto) Baso % (Auto) Lymph # (Auto) Owsley # (Auto) Eos # (Auto) Baso # (Auto) Absolute Neuts (auto) PT INR APTT D-Dimer, Quantitative Sodium Potassium Chloride Carbon Dioxide Anion Gap BUN Creatinine Est GFR ( Amer) Est GFR (Non-Af Amer) Random Glucose Calcium Total Bilirubin AST ALT Alkaline Phosphatase Lactate Dehydrogenase Total Creatine Kinase 413 H CK-MB (CK-2) < 0.2 CK-MB (CK-2) % Cancelled Troponin I Total Protein Albumin Globulin Albumin/Globulin Ratio Urine Color Urine Appearance Urine pH Ur Specific Crandon Urine Protein Urine Glucose (UA) Urine Ketones Urine Blood Urine Nitrate Urine Bilirubin Urine Urobilinogen Ur Leukocyte Esterase Urine RBC Urine WBC Ur Epithelial Cells Amorphous Sediment Assessment & Plan - Assessment and Plan (Free Text) Assessment: A 28 year old obese female who came in to the ER due to mid sternal chest pain described as more like pressure especially when taking nice deep breaths that radiates to back. She has history of asthma but not on any medications. She had similar symptoms last 09/06/18 and came to the ER. EKG and troponin were normal thus sent home to follow up with PMD and Front End Developer Designer. Consult was called to evaluate chest pain. EKG showed sinus tachycardia, no ischemia. Troponin negative. Telemetry showed episode of second degree heart block. Asymptomatic, patient sleeping at that time.Now normal sinus rhythm 70-80's. Holter monitor for 24 hours. Atypical chest pain. Clinically stable. Denies chest pain now. Denies shortness of breath. May discharge patient with holter monitor. Will schedule out patient echocardiogram and stress test. Consider pulmonary work up as out patient for history of asthma and rule out obstructive sleep apnea. May discharge patient from cardiac standpoint. Plan: May discharge patient from cardiac standpoint. Denies chest pain Denies shortness of breath. Heart rate stable Blood pressure stable May discharge patient with holter monitor Will schedule out patient echocardiogram Will schedule out patient stress test. Follow up in office 1-2 weeks Plan and treatment discussed with Dr. Roldan Thank you Dr. Morales for the opportunity of taking care of Isha Turner - Date & Time Date: 09/30/18 Time: 12:55
[2018-09-30 16:38] VITALS: PULSE 78
--- NOTE | 2018-09-30 18:56 | DS ---
HISTORY OF PRESENT ILLNESS: She is feeling much better than when she came in. No more shortness of breath. No more chest pain. No more anxiety. She is eating well. She is doing well. No complaints. She did have a Mobitz type II for a moment on EKG, it is not in my computer that it gets me that. I believe that head teller gave a verbal to the nurse about possibly doing a 24-hour Holter monitor having followup in the outpatient. Awaiting for the head teller to come to the chart. PHYSICAL EXAMINATION: VITAL SIGNS: A 97.8 temp, 88 pulse, 105/67 blood pressure, 19 respiratory rate, and 98% O2 sat on room air. HEENT: Head is atraumatic and normocephalic. HEART: Regular rate. LUNGS: Decreased breath sounds, but clear. ABDOMEN: Soft and obese. EXTREMITIES: No edema. MEDICATIONS: She is currently on albuterol as needed, aspirin, Protonix which we will stop, and IV fluids which has helped a lot I believe. LABORATORY DATA: She has a white count of 6.7, 11.7 hemoglobin, 37.1 hematocrit with 363 platelets. D-dimer is less than 200, the INR is 1.19. Sodium 138, potassium 3.6, BUN 9, creatinine 0.7, GFR is greater than 60, sugar is 85, calcium is 8.8, total bili is 0.5, AST is 26, ALT is 14, alk phos is 59, total creatine kinase is dropped from 727 to 413, much better. All the troponin are negative less than 0.01, and total protein is 7. Urine was clean. EKG in the emergency room showed sinus tachycardia. She has a questionable Mobitz type II. She needs a 24-hour Holter monitor. I am waiting for Cardiology to get to the chart. I am hoping if this is a pulmonary issue, this is asthma, but she has improved greatly without any asthma treatment. I am hoping to discharge later today and she would have a Mobitz type II, rhabdomyolysis, chest pain, shortness of breath, anxiety, asthma, and she will follow up with the head teller and Dr. Morales, hopefully gets a 24-hour Holter monitor placed . Gamaliel Morales DO [facility] # [id number] LEOLA
--- NOTE | 2018-10-01 03:19 | DS ---
HOSPITAL COURSE: She is doing much better. No chest pain. No shortness of breath. No abdominal pain. No anxiety. She is eating well, comfortable. There was a question of Mobitz type II, which get her a Holter monitor and Cardiology evaluation before she is going to be discharged today. Her total creatine kinase came down to 413 from 727. Troponin's were negative. She is going to follow up next week with Dr. Morales and barrel inspector tight. She will be discharged today after Cardiology sees her and Holter monitor is placed. she knows not to drive a car also muct follow up w/ cardiology and pmd next week. Gamaliel Morales DO MTDD
--- NOTE | 2018-10-01 08:42 | CON ---
DATE: 09/30/2018 PULMONARY CONSULTATION HISTORY OF PRESENT ILLNESS: Ms. Turner is 28-year-old and she was admitted via emergency room with chief complaint of chest pain, which was worsening on breathing. We were asked by Dr. Morales, activities specialist to evaluate and treat this 28-year-old woman who has a past medical history of bronchial asthma. She noted the pain when she was dropping off her daughter in school. The pain radiated into her back and was also between her breast substernal. The patient did not have any recent trauma. She did not have any recent surgeries. She uses albuterol only as needed. She had some symptoms in the right leg; however, they resolved. She is not on control pills. Prior to coming to the emergency room, the symptoms existed for 3 hours. The onset was sudden and course was unchanged, it was not during activity. PAST MEDICAL HISTORY: Essentially negative except for bronchial asthma. PAST SURGICAL HISTORY: She had one surgery of ovarian cyst and . FAMILY HISTORY: No history of inherited diseases. HABITS: She is a nonsmoker, nondrinker, never used illicit drugs. MEDICATIONS: Reviewed per JUL. Albuterol inhaler noted. REVIEW OF SYSTEMS: ENT: No throat pain. No stuffy nose. PULMONARY: Shortness of breath only associated with new onset chest pain. No wheezing. CARDIOVASCULAR: No palpitations, but chest pain is a chief complaint. The rest of the systems were reviewed and found to be negative. The patient underwent the usual workup. D-dimer was negative. She was given IV fluid and aspirin. She was admitted to telemetry and cardiac consultation is pending. DIAGNOSES: 1. Chest pain on breathing. 2. Bronchial asthma, stable. PLAN: I would continue with current evaluation for chest pain, although it seems like musculoskeletal and noncardiac at this point. Elevated CPK has to be looked at further. We will await Cardiology consultation. Her D-dimer is negative and she did not undergo CT angiogram. I personally reviewed her images from her chest x-ray, which is completely normal. There is no cardiomegaly. There is no pulmonary vascular congestions or infiltrates. We will await completion of cardiac workup and continue with albuterol inhaler p.r.n. only. Paddy Richards MD [facility] # [id number]
== END 2018-09-30 16:44 | disposition home or self-care (01) ==
LOC: ED 14:12 → ERH 17:57 → 2RNO 20:32
PROVIDERS: ADMIT Family Medicine; ATTEND Family Medicine
DX: R07.1 Chest pain on breathing (principal); I44.1 Atrioventricular block, second degree; J45.909 Unspecified asthma, uncomplicated; G43.909 Migraine, unspecified, not intractable, without status migrainosus; D64.9 Anemia, unspecified; R74.8 Abnormal levels of other serum enzymes; E66.9 Obesity, unspecified; Z68.35 Body mass index [BMI] 35.0-35.9, adult
CPT/HCPCS: 36415; 71046; 80053; 81001; 81025; 82550; 82553; 83615; 84484; 85025; 85027; 85378; 85610; 85730; 93005; 93225; 93226; 96361; 96374; 96376; 99285; C9113; G0378; J7030; J7040